=== PATIENT | female | born 1985 | race Caucasian/White ===

== ENCOUNTER 2022-04-23 20:03 | Emergency (ER) | payer OTHER ==
[2022-04-23 20:33] VITALS: BP 165/91; PULSE 103; RESP 18; TEMP 98.6; BMI 45.3
[2022-04-23] MEDS ORDERED: PIPERACILLIN/TAZOB 4.5 GM 4.5 GM in DEXTROSE 5%-WATER 100 ML IVPB ONE (20:40)
[2022-04-23] MEDS ORDERED: PIPERACILLIN/TAZOBACTAM 4.5 GM VIAL IVPB ONE (20:42)
[2022-04-23 21:08] LABS: HEMATOCRIT 38.5 % (32.4-45.2); HEMOGLOBIN 13.3 G/dL (10.7-15.3); MCH 29.1 pg (25.7-33.7); MCHC 34.6 g/dl (32.0-36.0); MEAN CELL VOLUME 84.2 fl (80-96); MEAN PLT VOLUME 8.2 fl (7.5-11.1); PLATELET COUNT 251.3 10^3/uL (134-434); RBC 4.57 10^6/uL (3.60-5.2); RDW 14.7 % (11.6-15.6); WHITE BLOOD COUNT 9.5 10^3/uL (4.0-10.8)
[2022-04-23 21:24] LABS: PLATELET ESTIMATE ADEQUATE
[2022-04-23 21:31] LABS: ALBUMIN 3.4 g/dl (3.4-5.0); BILIRUBIN,TOTAL 0.7 mg/dl (0.2-1); CALCIUM 8.9 mg/dl (8.5-10); CREATININE 0.8 mg/dl (0.55-1.3); TOT PROT 6.5 g/dl (6.4-8.2)
[2022-04-23] MEDS ORDERED: KETOROLAC TROMETHAMINE 30 MG/1 ML VIAL ONE (22:35)
[2022-04-23] MEDS ORDERED: KETOROLAC TROMETHAMINE 30 MG/1 ML VIAL IVPUSH ONE (22:35)
== END 2022-04-23 22:51 | disposition home or self-care (01) ==
LOC: FER 20:03
PROC: 3E033GC Introduction of Other Therapeutic Substance into Peripheral Vein, Percutaneous Approach (ICD-10-PCS; principal; 2022-04-23)
DX: K04.7 Periapical abscess without sinus (principal)
CPT/HCPCS: 36415; 80053; 85025; 99284-25

== ENCOUNTER 2022-12-28 18:37 | Emergency (ER) | payer OTHER ==
[2022-12-28 19:13] VITALS: BP 142/86; PULSE 102; RESP 20; TEMP 99.1; BMI 41.1
[2022-12-28] MEDS ORDERED: KETOROLAC TROMETHAMINE 30 MG/1 ML VIAL IVPUSH ONE (19:53)
[2022-12-28 19:54] LABS: HEMATOCRIT 40.3 % (32.4-45.2); MCH 30.4 pg (25.7-33.7); MCHC 34.6 g/dl (32.0-36.0); MEAN CELL VOLUME 87.8 fl (80-96); MEAN PLT VOLUME 7.8 fl (7.5-11.1); PLATELET COUNT 380.4 10^3/uL (134-434); RBC 4.59 10^6/uL (3.60-5.2); RDW 14.2 % (11.6-15.6); WHITE BLOOD COUNT 14.3 10^3/uL (4.0-10.8)
[2022-12-28] MEDS ORDERED: KETOROLAC TROMETHAMINE 30 MG/1 ML VIAL ONE (19:54)
[2022-12-28] MEDS ORDERED: VANCOMYCIN 1 GM in D5W (PRE-DOCKED) 1,000 MG/250 ML (RESTRICTED TO ID ONLY IVPB ONE (19:57)
[2022-12-28] MEDS ORDERED: VANCOMYCIN 1,000 MG VIAL (RESTRICTED TO ID ONLY) ONE (20:03)
[2022-12-28 20:14] LABS: BILIRUBIN,TOTAL 0.7 mg/dl (0.2-1); CALCIUM 9.8 mg/dl (8.5-10); CREATININE 0.9 mg/dl (0.55-1.3); TOT PROT 7.3 g/dl (6.4-8.2)
[2022-12-28] MEDS ORDERED: SODIUM CHLORIDE 500 ML IV STA (20:42)
== END 2022-12-28 23:04 | disposition home or self-care (01) ==
LOC: FER 18:37
PROC: 3E0233Z Introduction of Anti-inflammatory into Muscle, Percutaneous Approach (ICD-10-PCS; principal; 2022-12-28)
PROC: 3E03329 Introduction of Other Anti-infective into Peripheral Vein, Percutaneous Approach (ICD-10-PCS; 2022-12-28)
PROC: 3E0337Z Introduction of Electrolytic and Water Balance Substance into Peripheral Vein, Percutaneous Approach (ICD-10-PCS; 2022-12-28)
DX: R51.9 Headache, unspecified (principal); R22.0 Localized swelling, mass and lump, head; L03.211 Cellulitis of face
CPT/HCPCS: 36415; 70487-TC; 80053; 85027; 96361; 96374; 96375; 99285-25; Q9967